=== PATIENT | female | born 1985 ===

== ENCOUNTER 2018-02-27 13:19 | Emergency (ER) | payer SELFPAY ==
[2018-02-27 14:18] VITALS: BP 115/66
[2018-02-27] MEDS ORDERED: TYLENOL PO ONE (16:11)
[2018-02-27] MEDS ORDERED: BOOSTRIX IM ONE (18:08)
[2018-02-27] MEDS ORDERED: hyperRAB S/D IM ONE (18:08)
[2018-02-27] MEDS ORDERED: RABAVERT RABIES VACCINE(PCEC) IM ONE (18:08)
--- NOTE | 2018-02-27 18:31 | Emergency Department Report ---
ED Animal Bite HPI - General Chief Complaint: Animal Bite Stated Complaint: PAIN IN HAND Time Seen by Provider: 02/27/18 18:04 Source: patient Mode of arrival: Ambulatory Limitations: No Limitations - History of Present Illness Initial Comments: This is a 32-year-old female nontoxic, well nourished in appearance, no acute signs of distress presents to the ED with c/o of dog bite to both hands that occurred this afternoon. Patient eventually transferred break up the fight between her dog and the dog and her own dog bit her. Patient states she is not sure if she dog is up-to-date on vaccines. Patient denies any numbness, tingling, fever, chills, nausea, vomiting, chest pain or shortness of breath. She denies any decreased range of motion or sensation. Patient denies any drug allergies past medical history. Family member present during interview and exam due to patient speaking Mongolian. Patient denies being up-to-date with tetanus. MD Complaint: animal bite -: This afternoon Left: Hand, Right: Hand Animal: dog Animal Control Notified: No Description: household pet Mechanism: bite Pain Description: dull Severity scale (0 -10): 8 Context: animals fighting Associated Symptoms: none. denies: erythema, discharge from wound, bleeding, fever, chills, rash, loss of consciousness, cough, headache, diaphoresis, shortness of breath - Related Data Patient Tetanus UTD: No Previous Rx's Medication Instructions Recorded Last Taken Type Acetaminophen/Codeine [Tylenol 1 tab PO Q6H PRN #12 tab 02/27/18 Unknown Rx /Codeine # 3 tab] Amoxicillin/K Clav Tab [Augmentin 1 tab PO Q12HR #20 tab 02/27/18 Unknown Rx 875 mg] Ibuprofen [Motrin] 600 mg PO Q8H PRN #30 tablet 02/27/18 Unknown Rx Allergies Allergy/AdvReac Type Severity Reaction Status Date / Time No Known Allergies Allergy Verified 02/27/18 14:15 ED Review of Systems ROS: Stated complaint: PAIN IN HAND Other details as noted in HPI Constitutional: denies: chills, fever Eyes: denies: eye pain, eye discharge, vision change ENT: denies: ear pain, throat pain Respiratory: denies: cough, shortness of breath, wheezing Cardiovascular: denies: chest pain, palpitations Endocrine: no symptoms reported Gastrointestinal: denies: abdominal pain, nausea, diarrhea Genitourinary: denies: urgency, dysuria, discharge Musculoskeletal: denies: back pain, joint swelling, arthralgia Skin: denies: rash, lesions Neurological: denies: headache, weakness, paresthesias Psychiatric: denies: anxiety, depression Hematological/Lymphatic: denies: easy bleeding, easy bruising ED Past Medical Hx - Past Medical History Previous Medical History?: No - Surgical History Past Surgical History?: No - Social History Smoking Status: Never Smoker Substance Use Type: None - Medications Home Medications: Home Medications Medication Instructions Recorded Confirmed Last Taken Type Acetaminophen/Codeine [Tylenol 1 tab PO Q6H PRN #12 tab 02/27/18 Unknown Rx /Codeine # 3 tab] Amoxicillin/K Clav Tab [Augmentin 1 tab PO Q12HR #20 tab 02/27/18 Unknown Rx 875 mg] Ibuprofen [Motrin] 600 mg PO Q8H PRN #30 tablet 02/27/18 Unknown Rx ED Physical Exam - General Limitations: No Limitations General appearance: alert, in no apparent distress - Head Head exam: Present: atraumatic, normocephalic - Eye Eye exam: Present: normal appearance - ENT ENT exam: Present: mucous membranes moist - Neck Neck exam: Present: normal inspection - Respiratory Respiratory exam: Present: normal lung sounds bilaterally. Absent: respiratory distress - Cardiovascular Cardiovascular Exam: Present: regular rate, normal rhythm. Absent: systolic murmur, diastolic murmur, rubs, gallop - GI/Abdominal GI/Abdominal exam: Present: soft, normal bowel sounds - Extremities Exam Extremities exam: Present: normal inspection, full ROM, tenderness, normal capillary refill. Absent: joint swelling - Expanded Upper Extremity Exam Left General: Present: normal inspection (bilateral exam) Shoulder Exam: Present: normal inspection (bilateral exam), full ROM (bilateral exam). Absent: tenderness, swelling Upper Arm exam: Present: normal inspection (bilateral exam), full ROM ( bilateral exam). Absent: tenderness, swelling Elbow exam: Present: normal inspection (bilateral exam), full ROM (bilateral exam). Absent: tenderness, swelling Forearm Wrist exam: Present: normal inspection (bilateral exam), full ROM ( bilateral exam). Absent: tenderness, swelling Hand Wrist exam: Present: normal inspection (bilateral exam), full ROM ( bilateral exam), tenderness (bilateral exam), abrasion (bilateral exam). Absent : swelling, laceration, ecchymosis, deformity, crepidus, dislocation, erythema, amputation, nail avulsion, subungual hematoma Hand L/R Front: 1 - Positive: abrasion 2 - Positive: abrasion Neuro motor exam: Present: wrist extension intact, thumb opposition intact, thumb IP flexion intact, thumb adduction intact, fingers 2-5 abduction intact Neurosensory exam: Present: 2-point discrimination, radial nerve intact, ulnar nerve intact, median nerve intact Vascular: Present: vascular compromise, normal capillary refill, radial pulse, brachial pulse, ulnar pulse - Back Exam Back exam: Present: normal inspection, full ROM - Neurological Exam Neurological exam: Present: alert, oriented X3 - Psychiatric Psychiatric exam: Present: normal affect, normal mood - Skin Skin exam: Present: warm, dry, intact, normal color. Absent: rash ED Course Vital Signs 02/27/18 14:15 Temperature 97.4 F L Pulse Rate 79 Respiratory 16 Rate Blood Pressure 115/66 O2 Sat by Pulse 96 Oximetry - Reevaluation(s) Reevaluation #1: 02/27/18 18:30 Patient is speaking in full sentences with no signs of distress noted. Critical care attestation.: If time is entered above; I have spent that time in minutes in the direct care of this critically ill patient, excluding procedure time. ED Disposition Clinical Impression: Abrasion Dog bite Qualifiers: Encounter type: initial encounter Qualified Code(s): W54.0XXA - Bitten by dog, initial encounter Disposition: DC-01 TO HOME OR SELFCARE Is pt being admited?: No Does the pt Need Aspirin: No Condition: Stable Instructions: Animal Bite (ED), Acute Wound Care (ED), Acetaminophen/Codeine ( By mouth) Additional Instructions: Follow-up with a primary care doctor in 3-5 days or if symptoms worsen and continue return to emergency room as soon as possible. You must finish the rabies vaccines on days 03/02/2018, 03/06/2018, and 2017. Please see referral where you can finish the rabies vaccine series. Do not operate any machinery while taking Tylenol with codeine as this may cause drowsiness. Prescriptions: Acetaminophen/Codeine [Tylenol /Codeine # 3 tab] 1 tab PO Q6H PRN #12 tab PRN Reason: Pain , Severe (7-10) Amoxicillin/K Clav Tab [Augmentin 875 mg] 1 tab PO Q12HR #20 tab Ibuprofen [Motrin] 600 mg PO Q8H PRN #30 tablet PRN Reason: Pain Referrals: PRIMARY CAREMD [Primary Care Provider] - 3-5 Days TYLER DOSHI MD [Staff Physician] - 3-[address] [facility] [place] [Outside] - 3-5 Days [facility] [Outside] - 3-5 Days Forms: Work/School Release Form(ED) Print Language: LATVIAN ED Medical Decision Making - Medical Decision Making This is a 31-year-old female that presents with dog bite. Patient is febrile was examined by me. Both hands has been clean with soap and water and Betadine applied. Sterile dressing applied. Patient received tetanus booster. Patient also received rabies vaccine and immunoglobulin. Patient was instructed to finish rabies vaccine courses on days 3, 7 and 14. Patient is discharged with Augmentin and Tylenol with codeine. Patient was referred to Follow-up with a primary care doctor in 3-5 days or if symptoms worsen and continue return to emergency room as soon as possible. At time of discharge, the patient does not seem toxic or ill in appearance. No acute signs of distress noted. Patient agrees to discharge treatment plan of care. No further questions noted by the patient.
== END 2018-02-27 19:20 | disposition home or self-care (01) ==
LOC: ED 13:19
DX: S60.512A Abrasion of left hand, initial encounter (principal); S60.511A Abrasion of right hand, initial encounter; W54.0XXA Bitten by dog, initial encounter; Y93.89 Activity, other specified; Y99.8 Other external cause status; Y92.89 Other specified places as the place of occurrence of the external cause
CPT/HCPCS: 90375; 90471; 90675; 99283